=== PATIENT | male | born 1990 | race Caucasian/White ===

== ENCOUNTER 2018-01-04 19:51 | Emergency (ER) | payer MEDICARE, OTHER ==
[~2018-01-04] VITALS: Ht 177.8 cm; Wt 72.7 kg
[~2018-01-04 19:51] MED LIST: NO HOME MEDS
[2018-01-04 19:54] VITALS: BP 110/57
[2018-01-04] MEDS ORDERED: LIDOcaine 1.5% w/epinephrine 1:200,000 5ml ampul IJ ONE (20:10)
[2018-01-04] MEDS ORDERED: normal saline 1000ML IV soln IVB ONE (20:10)
[2018-01-04] MEDS ORDERED: bacitracin 15gm ointment TP ONE (20:10)
[2018-01-04] MEDS: TETanus/Pertussis (Acell)/Diphther VAC/PF (Tdap-Adult) 0.5ml syringe IM ONE ×2 (20:10→20:33)
== END 2018-01-04 21:35 | disposition home or self-care (01) ==
LOC: ER 19:51
DX: S01.01XA Laceration without foreign body of scalp, initial encounter (principal); F10.129 Alcohol abuse with intoxication, unspecified; F20.9 Schizophrenia, unspecified; F41.9 Anxiety disorder, unspecified; F12.10 Cannabis abuse, uncomplicated; F15.10 Other stimulant abuse, uncomplicated; F11.10 Opioid abuse, uncomplicated; Z88.1 Allergy status to other antibiotic agents; Z90.49 Acquired absence of other specified parts of digestive tract; W45.8XXA Other foreign body or object entering through skin, initial encounter; Y93.89 Activity, other specified; Y99.8 Other external cause status; Y92.89 Other specified places as the place of occurrence of the external cause
CPT/HCPCS: 12002; 70450; 99284; A6449; J3490; J7030; 90715; 96360

== ENCOUNTER 2018-01-08 05:25 | Emergency (ER) | payer MEDICARE, OTHER ==
[~2018-01-08] VITALS: Ht 172.7 cm; Wt 65.0 kg
[2018-01-08 05:29] VITALS: BP 117/74
[2018-01-08] MEDS ORDERED: predniSONE 20 mg tablet PO ONE (06:30)
[2018-01-08] MEDS ORDERED: PRED20TA PO (06:31)
== END 2018-01-08 06:44 | disposition home or self-care (01) ==
LOC: ER 05:25
DX: R21 Rash and other nonspecific skin eruption (principal); F12.90 Cannabis use, unspecified, uncomplicated; F15.90 Other stimulant use, unspecified, uncomplicated; F11.90 Opioid use, unspecified, uncomplicated; Z98.890 Other specified postprocedural states; Z79.899 Other long term (current) drug therapy; Z88.8 Allergy status to other drugs, medicaments and biological substances
CPT/HCPCS: 99283; J7512

== ENCOUNTER 2018-01-12 10:20 | Emergency (ER) | payer MEDICARE, OTHER ==
[~2018-01-12] VITALS: Ht 172.7 cm; Wt 63.8 kg
[~2018-01-12 10:20] MED LIST changes: +PRED20TA PO
[2018-01-12 10:22] VITALS: BP 139/74
== END 2018-01-12 11:48 | disposition home or self-care (01) ==
LOC: ER 10:20
DX: S01.01XD Laceration without foreign body of scalp, subsequent encounter (principal); F12.90 Cannabis use, unspecified, uncomplicated; F15.90 Other stimulant use, unspecified, uncomplicated; F11.90 Opioid use, unspecified, uncomplicated; Z88.8 Allergy status to other drugs, medicaments and biological substances; Z90.49 Acquired absence of other specified parts of digestive tract; Z79.899 Other long term (current) drug therapy; X58.XXXD Exposure to other specified factors, subsequent encounter
CPT/HCPCS: 99281

== ENCOUNTER 2018-04-14 17:11 | Emergency (ER) | payer MEDICARE, OTHER ==
[~2018-04-14] VITALS: Ht 172.7 cm; Wt 62.5 kg
[~2018-04-14 17:11] MED LIST changes: -PRED20TA PO
[2018-04-14 17:18] VITALS: BP 104/67
[2018-04-14] MEDS ORDERED: CLIN150C2 PO (18:15)
== END 2018-04-14 18:36 | disposition home or self-care (01) ==
LOC: ER 17:11
DX: L03.115 Cellulitis of right lower limb (principal); L02.415 Cutaneous abscess of right lower limb; F12.90 Cannabis use, unspecified, uncomplicated; F17.200 Nicotine dependence, unspecified, uncomplicated; Z90.49 Acquired absence of other specified parts of digestive tract; Z88.1 Allergy status to other antibiotic agents
CPT/HCPCS: 99283

== ENCOUNTER 2018-04-15 02:23 | Emergency (ER) | payer MEDICARE, OTHER ==
[~2018-04-15] VITALS: Ht 172.7 cm; Wt 62.4 kg
[~2018-04-15 02:23] MED LIST changes: +CLIN150C2 PO
[2018-04-15 02:31] VITALS: BP 104/70
[2018-04-15] MEDS ORDERED: clindamycin 150mg capsule PO ONE (02:45)
[2018-04-15] MEDS ORDERED: acetaminophen 325mg tablet PO ONE (02:55)
== END 2018-04-15 03:07 | disposition home or self-care (01) ==
LOC: ER 02:24
DX: L73.9 Follicular disorder, unspecified (principal); F12.90 Cannabis use, unspecified, uncomplicated; Z88.1 Allergy status to other antibiotic agents; Z90.49 Acquired absence of other specified parts of digestive tract
CPT/HCPCS: 10060; 99283

== ENCOUNTER 2018-04-15 05:54 | Emergency (ER) | payer MEDICARE, OTHER ==
[~2018-04-15] VITALS: Ht 172.7 cm; Wt 75.0 kg
[2018-04-15] MEDS ORDERED: ibuprofen 200mg tablet PO ONE (06:35)
[2018-04-15] MEDS ORDERED: HYDROcodone/acetaminophen 5mg/325mg tablet PO ONE (06:35)
[2018-04-15 07:04] VITALS: BP 92/53
== END 2018-04-15 07:05 | disposition home or self-care (01) ==
LOC: ER 05:55
DX: L03.115 Cellulitis of right lower limb (principal); F12.90 Cannabis use, unspecified, uncomplicated; Z88.1 Allergy status to other antibiotic agents; Z90.49 Acquired absence of other specified parts of digestive tract
CPT/HCPCS: 99283

== ENCOUNTER 2018-04-17 14:41 | Emergency (ER) | payer MEDICARE, OTHER ==
[2018-04-17] MEDS ORDERED: SULF1TAB49 PO (18:04)
== END 2018-04-17 18:02 | disposition left against medical advice (07) ==
LOC: ER 14:42
DX: L02.419 Cutaneous abscess of limb, unspecified (principal); Z53.21 Procedure and treatment not carried out due to patient leaving prior to being seen by health care provider

== ENCOUNTER 2018-04-17 17:33 | Emergency (ER) | payer MEDICARE, OTHER ==
[~2018-04-17] VITALS: Ht 172.7 cm; Wt 60.0 kg
[2018-04-17 17:55] VITALS: BP 100/60
[2018-04-17] MEDS ORDERED: SULF1TAB49 PO (18:04)
== END 2018-04-17 18:15 | disposition home or self-care (01) ==
LOC: ER 17:34
DX: L02.415 Cutaneous abscess of right lower limb (principal); F12.90 Cannabis use, unspecified, uncomplicated; Z86.14 Personal history of Methicillin resistant Staphylococcus aureus infection; Z90.49 Acquired absence of other specified parts of digestive tract; Z98.890 Other specified postprocedural states; Z88.1 Allergy status to other antibiotic agents; Z79.2 Long term (current) use of antibiotics
CPT/HCPCS: 99283

== ENCOUNTER 2022-12-26 00:19 | Emergency (ER) | payer MEDICARE, MEDICAID ==
[~2022-12-26] VITALS: Ht 172.7 cm; Wt 59.1 kg
[~2022-12-26 00:19] MED LIST changes: -CLIN150C2 PO
[2022-12-26 00:53] LABS: BASOPHILS # (AUTO) 0.1 X10'3 (0-0.2); BASOPHILS % (AUTO) 0.4 % (0-1); EOSINOPHILS % (AUTO) 0.1 % (0-6); HEMATOCRIT 43.9 % (42.0-52.0); HEMOGLOBIN 15.1 g/dl (14.0-17.9); LYMPHOCYTES # (AUTO) 2.3 X10'3 (1.1-4.8); MEAN CORPUSCULAR HEMOGLOBIN 32.3 PG (27.0-31.0); MEAN CORPUSCULAR HGB CONC 34.4 g/dL (33.0-36.5); MEAN CORPUSCULAR VOLUME 93.9 FL (78-98); MEAN PLATELET VOLUME 7.2 FL (7.4-10.4); MONOCYTES % (AUTO) 7.7 % (2-12); NEUTROPHILS # (AUTO) 9.2 X10'3 (1.8-7.7); NEUTROPHILS % (AUTO) 73.8 % (42-75); PLATELET COUNT 389 X10'3 (140-440); RED BLOOD COUNT 4.68 X10'6 (4.70-6.10); RED CELL DISTRIBUTION WIDTH 13.7 % (11.5-14.5); WHITE BLOOD COUNT 12.5 X10'3 (4.5-11.0)
[2022-12-26 01:06] LABS: ALANINE AMINOTRANSFERASE 35 U/L (12-78); ALBUMIN 4.2 G/DL (3.4-5.0); ALBUMIN/GLOBULIN RATIO 1.2 (1.1-1.5); ANION GAP 12 (8-16); ASPARTATE AMINO TRANSFERASE 18 U/L (10-37); BILIRUBIN,TOTAL 0.6 MG/DL (0.1-1.0); BLOOD UREA NITROGEN 20 MG/DL (7-18); BUN/CREATININE RATIO 16.1 (10.0-20.0); CALCIUM 9.4 MG/DL (8.5-10.1); CHLORIDE 96 MMOL/L (99-107); CREATININE 1.24 MG/DL (0.60-1.10); GLUCOSE 125 MG/DL (70-104); POTASSIUM 3.2 MMOL/L (3.5-5.1); SODIUM 131 MMOL/L (135-145); TOTAL CARBON DIOXIDE 22.7 MMOL/L (24-32); TOTAL PROTEIN 7.7 G/DL (6.4-8.2); eGFR 68 ML/MIN
[2022-12-26 01:07] LABS: ALKALINE PHOSPHATASE 127 IU/L (46-116)
[2022-12-26] MEDS ORDERED: ondansetron 4mg rapidly disintigrating tab PO ONE (06:10)
[2022-12-26] MEDS ORDERED: normal saline 1000ML IV soln IVB ONE (06:45)
[2022-12-26] MEDS ORDERED: potassium Cl 20 mEq SR tablet PO ONE (06:50)
[2022-12-26] MEDS ORDERED: mag hydrox/Alum hydrox/simeth 30ml oral suspension PO ONE (08:00)
[2022-12-26] MEDS ORDERED: metoclopramide 5 mg/ml inj IV ONE (08:00)
[2022-12-26 08:13] VITALS: BP 119/58
== END 2022-12-26 09:05 | disposition home or self-care (01) ==
LOC: ER 00:20
DX: R07.9 Chest pain, unspecified (principal); F41.9 Anxiety disorder, unspecified; F20.9 Schizophrenia, unspecified; F12.10 Cannabis abuse, uncomplicated; Z86.14 Personal history of Methicillin resistant Staphylococcus aureus infection
CPT/HCPCS: 36415; 71045; 80053; 83880; 84484; 85025; 93005; 96374; 99285; J2765; J7030

== ENCOUNTER 2023-01-17 09:03 | Emergency (ER) | payer MEDICAID ==
[~2023-01-17] VITALS: Ht 182.9 cm; Wt 65.0 kg
[2023-01-17 09:46] VITALS: BP 110/69
[2023-01-17 10:20] LABS: BASOPHILS % (AUTO) 0.7 % (0-1); EOSINOPHILS % (AUTO) 0.5 % (0-6); HEMATOCRIT 42.7 % (42.0-52.0); LYMPHOCYTES # (AUTO) 1.6 X10'3 (1.1-4.8); LYMPHOCYTES % (AUTO) 25.2 % (21-51); MEAN CORPUSCULAR HEMOGLOBIN 30.7 PG (27.0-31.0); MEAN CORPUSCULAR HGB CONC 32.7 g/dL (33.0-36.5); MEAN CORPUSCULAR VOLUME 93.9 FL (78-98); MONOCYTES # (AUTO) 0.3 X10'3 (0-0.9); MONOCYTES % (AUTO) 5.6 % (2-12); NEUTROPHILS # (AUTO) 4.2 X10'3 (1.8-7.7); PLATELET COUNT 453 X10'3 (140-440); RED BLOOD COUNT 4.54 X10'6 (4.70-6.10); RED CELL DISTRIBUTION WIDTH 13.7 % (11.5-14.5); WHITE BLOOD COUNT 6.2 X10'3 (4.5-11.0)
[2023-01-17 10:32] LABS: URINE AMPHETAMINE SCREEN NEGATIVE (Neg); URINE BARBITUATE SCREEN NEGATIVE (Neg); URINE BENZODIAZEPINES SCREEN NEGATIVE (Neg); URINE CANNABINOID SCREEN NEGATIVE (Neg); URINE COCAINE SCREEN NEGATIVE (Neg); URINE METHADONE SCREEN NEGATIVE (Neg); URINE OPIATE SCREEN NEGATIVE (Neg); URINE PHENCYCLIDINE SCREEN NEGATIVE (Neg)
[2023-01-17 10:37] LABS: ALANINE AMINOTRANSFERASE 28 U/L (12-78); ALBUMIN 3.6 G/DL (3.4-5.0); ALBUMIN/GLOBULIN RATIO 0.8 (1.1-1.5); ALKALINE PHOSPHATASE 168 IU/L (46-116); ANION GAP 12 (8-16); ASPARTATE AMINO TRANSFERASE 19 U/L (10-37); BILIRUBIN,TOTAL 0.2 MG/DL (0.1-1.0); BLOOD UREA NITROGEN 10 MG/DL (7-18); BUN/CREATININE RATIO 10.4 (10.0-20.0); CALCIUM 9.1 MG/DL (8.5-10.1); CHLORIDE 100 MMOL/L (99-107); CREATININE 0.96 MG/DL (0.60-1.10); GLUCOSE 83 MG/DL (70-104); SODIUM 138 MMOL/L (135-145); TOTAL CARBON DIOXIDE 25.9 MMOL/L (24-32); eGFR 90 ML/MIN
[2023-01-17 11:23] LABS: ETHANOL < 0.010 GM/DL (0.0-0.010)
== END 2023-01-17 10:39 | disposition left against medical advice (07) ==
LOC: ER 09:04
DX: F60.0 Paranoid personality disorder (principal); Z20.822 Contact with and (suspected) exposure to COVID-19; Z53.21 Procedure and treatment not carried out due to patient leaving prior to being seen by health care provider
CPT/HCPCS: 36415; 80053; 80305; 80320; 85025; 87811; 99281

== ENCOUNTER 2023-02-21 19:05 | Inpatient (IN) | payer MEDICARE, MEDICAID ==
[~2023-02-21] VITALS: Ht 182.9 cm; Wt 68.2 kg
[2023-02-21 19:38] LABS: BASOPHILS # (AUTO) 0.1 X10'3 (0-0.2); EOSINOPHILS # (AUTO) 0.1 X10'3 (0-0.9); EOSINOPHILS % (AUTO) 1.6 % (0-6); HEMATOCRIT 40.8 % (42.0-52.0); HEMOGLOBIN 13.9 g/dl (14.0-17.9); LYMPHOCYTES # (AUTO) 2.7 X10'3 (1.1-4.8); MEAN CORPUSCULAR VOLUME 88.3 FL (78-98); MEAN PLATELET VOLUME 7.6 FL (7.4-10.4); MONOCYTES # (AUTO) 0.5 X10'3 (0-0.9); NEUTROPHILS # (AUTO) 2.5 X10'3 (1.8-7.7); NEUTROPHILS % (AUTO) 42.4 % (42-75); PLATELET COUNT 295 X10'3 (140-440); RED BLOOD COUNT 4.62 X10'6 (4.70-6.10); RED CELL DISTRIBUTION WIDTH 14.2 % (11.5-14.5); WHITE BLOOD COUNT 5.9 X10'3 (4.5-11.0)
[2023-02-21 19:52] LABS: ALANINE AMINOTRANSFERASE 27 U/L (12-78); ALBUMIN 3.8 G/DL (3.4-5.0); ALBUMIN/GLOBULIN RATIO 1.1 (1.1-1.5); ALKALINE PHOSPHATASE 124 IU/L (46-116); ANION GAP 14 (8-16); ASPARTATE AMINO TRANSFERASE 17 U/L (10-37); BILIRUBIN,TOTAL 0.2 MG/DL (0.1-1.0); BLOOD UREA NITROGEN 15 MG/DL (7-18); BUN/CREATININE RATIO 14.3 (10.0-20.0); CALCIUM 9.1 MG/DL (8.5-10.1); CHLORIDE 101 MMOL/L (99-107); CREATININE 1.05 MG/DL (0.60-1.10); GLUCOSE 112 MG/DL (70-104); LIPASE 78 U/L (73-393); POTASSIUM 3.7 MMOL/L (3.5-5.1); SODIUM 142 MMOL/L (135-145); TOTAL CARBON DIOXIDE 27.2 MMOL/L (24-32); TOTAL PROTEIN 7.3 G/DL (6.4-8.2); eGFR 81 ML/MIN
[2023-02-21] MEDS ORDERED: ondansetron/PF 4mg/2ml inj IV ONE (19:55)
[2023-02-21] MEDS ORDERED: morphine 4 MG/ML inj SYRINge IV ONE (19:55)
[2023-02-21] MEDS ORDERED: normal saline 1000ml 1,000 ML IV ONE (19:55)
[2023-02-21] MEDS ORDERED: ondansetron 4mg rapidly disintigrating tab PO STA (20:59)
--- NOTE | 2023-02-21 21:08 | NUR ---
[facility] transport # [id number]
[2023-02-21] MEDS ORDERED: ketorolac tromethamine 15mg/ml inj. IV STA (21:55)
[2023-02-21] MEDS ORDERED: iohexol 300mg/ml 100ml inj. ONE (22:41)
[2023-02-22] MEDS ORDERED: magnesium hydroxide 30ml (MOM) UD suspension PO PRN (00:20)
[2023-02-22] MEDS ORDERED: mag hydrox/Alum hydrox/simeth 30ml oral suspension PO PRN (00:20)
[2023-02-22] MEDS ORDERED: ondansetron/PF 4mg/2ml inj IV PRN (00:20)
[2023-02-22] MEDS ORDERED: HYDROcodone/acetaminophen 10/325mg tab PO PRN (00:20)
[2023-02-22] MEDS ORDERED: HYDROcodone/acetaminophen 5mg/325mg tablet PO PRN (00:20)
[2023-02-22] MEDS: normal saline 1000ml 1,000 ML IV SCH ×3 (00:20→21:23)
[2023-02-22] MEDS ORDERED: potassium Cl 20 mEq SR tablet PO PRN ×2 (00:20)
[2023-02-22] MEDS ORDERED: magnesium 4gm in 100ml NS 100 ML IV PRN (00:20)
[2023-02-22] MEDS ORDERED: potassium Cl 40MEQ/1/2NS 520ml 520 ML IV PRN (00:20)
[2023-02-22] MEDS ORDERED: acetaminophen 325mg tablet PO PRN (00:20)
[2023-02-22 00:52] LABS: CLARITY,URINE CLEAR (Clear); COLOR,URINE STRAW (Yellow); GLUCOSE, URINE NEGATIVE (Neg); KETONES,URINE NEGATIVE (Neg); LEUKOCYTE ESTERASE ,URINE NEGATIVE (Neg); NITRITES, URINE NEGATIVE (Neg); OCCULT BLOOD,URINE NEGATIVE (Neg); PH,URINE 7.5 (4.8-8.0); PROTEIN,URINE NEGATIVE (Neg); UROBILINOGEN,URINE 0.2 E.U/dL (0.2-1.0)
[2023-02-22 00:56] LABS: UA COLLECTION TYPE CLN CATCH MIDSTREAM
[2023-02-22] MEDS ORDERED: HYDR-3686 PO (03:10)
[2023-02-22] MEDS ORDERED: MIRT-67 PO (03:10)
[2023-02-22] MEDS ORDERED: PALI6TAB PO (03:10)
--- NOTE | 2023-02-22 03:59 | NUR ---
CALL TO [facility] PER PT REQUEST TO NOTIFIY THAT PT HAS BEEN ADMITTED. SPOKE W/ EMPIRE EMPLOYEE WHO VERBALIZED UNDERSTANDING AND REQUESTS THAT [facility] KEEP THEM UPDATED RE STATUS AND IMPENDING DC.
--- NOTE | 2023-02-22 04:01 | NUR ---
RECEIVED CALL FROM [facility] ABD XRAY RESULTS FOR NG TUBE PLACEMENT RECCOMENDS 10CM ADVANCEMENT FOR OPTIMAL PLACEMENT. CRN/ PROVIDER NOTIFIED. NG TUBE ADVANCED 10 CM W/O COMPLICATION. PT TOLERATED WELL. WILL CONT TO MONITOR.
[2023-02-22] MEDS: morphine 4 MG/ML inj SYRINge IV PRN ×4 (04:27→19:07)
[2023-02-22 07:37] LABS: ALANINE AMINOTRANSFERASE 23 U/L (12-78); ALBUMIN 3.5 G/DL (3.4-5.0); ALKALINE PHOSPHATASE 117 IU/L (46-116); ANION GAP 12 (8-16); ASPARTATE AMINO TRANSFERASE 21 U/L (10-37); BASOPHILS % (AUTO) 0.1 % (0-1); BILIRUBIN,TOTAL 0.3 MG/DL (0.1-1.0); BLOOD UREA NITROGEN 11 MG/DL (7-18); BUN/CREATININE RATIO 10.5 (10.0-20.0); CALCIUM 8.6 MG/DL (8.5-10.1); CHLORIDE 102 MMOL/L (99-107); CREATININE 1.05 MG/DL (0.60-1.10); EOSINOPHILS % (AUTO) 0 % (0-6); GLUCOSE 132 MG/DL (70-104); HEMATOCRIT 40.6 % (42.0-52.0); HEMOGLOBIN 13.7 g/dl (14.0-17.9); LYMPHOCYTES # (AUTO) 0.8 X10'3 (1.1-4.8); LYMPHOCYTES % (AUTO) 7.8 % (21-51); MAGNESIUM 1.7 MG/DL (1.5-2.4); MEAN CORPUSCULAR HEMOGLOBIN 29.7 PG (27.0-31.0); MEAN CORPUSCULAR HGB CONC 33.9 g/dL (33.0-36.5); MEAN CORPUSCULAR VOLUME 87.6 FL (78-98); MEAN PLATELET VOLUME 7.6 FL (7.4-10.4); MONOCYTES # (AUTO) 0.8 X10'3 (0-0.9); MONOCYTES % (AUTO) 7.7 % (2-12); NEUTROPHILS # (AUTO) 8.4 X10'3 (1.8-7.7); NEUTROPHILS % (AUTO) 84.4 % (42-75); PLATELET COUNT 279 X10'3 (140-440); POTASSIUM 3.9 MMOL/L (3.5-5.1); RED BLOOD COUNT 4.63 X10'6 (4.70-6.10); RED CELL DISTRIBUTION WIDTH 14.4 % (11.5-14.5); SODIUM 139 MMOL/L (135-145); TOTAL CARBON DIOXIDE 25.1 MMOL/L (24-32); TOTAL PROTEIN 6.9 G/DL (6.4-8.2); eGFR 81 ML/MIN
[2023-02-22] MEDS: hydrOXYzine 25 MG tablet PO SCH ×2 (08:00→20:00)
[2023-02-22] MEDS: K and/or MAG REPLACEMENT MC SCH ×2 (08:00→20:00)
[2023-02-22] MEDS: docusate sod 100mg capsule PO SCH ×2 (08:00→20:00)
[2023-02-22] MEDS: nicotine 14mg patch - 24hr TD SCH (08:28)
--- NOTE | 2023-02-22 12:38 | NUR ---
pt yelling out for RN, asked pt what I could help with. Pt telling this documentation writer the NG tube isnt working. I then showed pt the contents in the NG tube to show pt that it is still working. Asking for pain meds, informed RN.
[2023-02-22] MEDS: ketorolac tromethamine 15mg/ml inj. IV PRN ×2 (13:17→21:19)
--- NOTE | 2023-02-22 14:37 | NUR ---
Patient in room ED 9. I have received report from Marii FARIAS in the ED and had the opportunity to ask questions and assume patient care.
[2023-02-22 15:19] VITALS: RESP 16; O2SAT 95
[2023-02-22 15:32] VITALS: BP 120/63; PULSE 73; RESP 16; TEMP 97.8; O2SAT 95
--- NOTE | 2023-02-22 17:26 | NUR ---
Eli from [facility] called to inquire about patient's status. Unable to accept the phone call at the time. Confirmed with patient, okay to update Eli. Attempted to call back at 17:20. No answer, unable to leave message with Eli. Eli ext [phone]
--- NOTE | 2023-02-22 18:35 | NUR ---
Problems reprioritized. Patient report given, questions answered & plan of care reviewed with Tammy.
[2023-02-22 19:00] VITALS: RESP 16; O2SAT 96
[2023-02-22] MEDS ORDERED: diatrozoate meglu/diatrozoate sod (37% iodine) 120ML oral solution PO ONE (21:00)
[2023-02-22] MEDS: enoxaparin 40mg/0.4ml syringe SQ SCH (21:19)
[2023-02-22] MEDS: mirtazapine 15mg tablet PO SCH (21:20)
[2023-02-22] MEDS: PALIPERIDONE 3 MG TAB.ER.24 PO SCH (21:32)
[2023-02-23] VITALS (16 sets, daily range): BP systolic 102–145; BP diastolic 60–99; PULSE 65–111; RESP 14–21; TEMP 97.3–99.9; O2SAT 94–99
[2023-02-23] MEDS: morphine 4 MG/ML inj SYRINge IV PRN ×2 (00:19→07:57)
[2023-02-23] MEDS: ketorolac tromethamine 15mg/ml inj. IV PRN ×2 (03:43→22:15)
[2023-02-23 06:01] LABS: BASOPHILS % (AUTO) 0.2 % (0-1); EOSINOPHILS % (AUTO) 0.1 % (0-6); HEMATOCRIT 40.7 % (42.0-52.0); HEMOGLOBIN 13.8 g/dl (14.0-17.9); LYMPHOCYTES # (AUTO) 0.8 X10'3 (1.1-4.8); LYMPHOCYTES % (AUTO) 11.3 % (21-51); MEAN CORPUSCULAR HEMOGLOBIN 29.8 PG (27.0-31.0); MEAN CORPUSCULAR HGB CONC 33.9 g/dL (33.0-36.5); MEAN PLATELET VOLUME 7.9 FL (7.4-10.4); MONOCYTES # (AUTO) 0.9 X10'3 (0-0.9); MONOCYTES % (AUTO) 12.6 % (2-12); NEUTROPHILS # (AUTO) 5.3 X10'3 (1.8-7.7); NEUTROPHILS % (AUTO) 75.8 % (42-75); PLATELET COUNT 249 X10'3 (140-440); RED BLOOD COUNT 4.63 X10'6 (4.70-6.10); RED CELL DISTRIBUTION WIDTH 14.8 % (11.5-14.5); WHITE BLOOD COUNT 6.9 X10'3 (4.5-11.0)
--- NOTE | 2023-02-23 06:25 | NUR ---
I have received report from BETITO Munoz; and had the opportunity to ask questions and assume patient care. Patient has no acute distress at this time.
[2023-02-23 06:53] LABS: ALANINE AMINOTRANSFERASE 19 U/L (12-78); ALBUMIN 3.2 G/DL (3.4-5.0); ALKALINE PHOSPHATASE 93 IU/L (46-116); ANION GAP 7 (8-16); ASPARTATE AMINO TRANSFERASE 17 U/L (10-37); BILIRUBIN,TOTAL 0.5 MG/DL (0.1-1.0); BLOOD UREA NITROGEN 14 MG/DL (7-18); BUN/CREATININE RATIO 15.6 (10.0-20.0); CALCIUM 8.2 MG/DL (8.5-10.1); CHLORIDE 106 MMOL/L (99-107); GLUCOSE 110 MG/DL (70-104); MAGNESIUM 1.9 MG/DL (1.5-2.4); POTASSIUM 3.4 MMOL/L (3.5-5.1); SODIUM 142 MMOL/L (135-145); TOTAL CARBON DIOXIDE 28.7 MMOL/L (24-32); TOTAL PROTEIN 6.5 G/DL (6.4-8.2); eGFR > 90 ML/MIN
[2023-02-23] MEDS: normal saline 1000ml 1,000 ML IV SCH ×3 (06:53→20:40)
[2023-02-23] MEDS ORDERED: potassium Cl 40MEQ/1/2NS 520ml 520 ML IV ONE (07:45)
[2023-02-23] MEDS: hydrOXYzine 25 MG tablet PO SCH ×2 (08:00→20:00)
[2023-02-23] MEDS: docusate sod 100mg capsule PO SCH ×2 (08:00→20:00)
[2023-02-23] MEDS: nicotine 14mg patch - 24hr TD SCH (08:14)
[2023-02-23] MEDS: K and/or MAG REPLACEMENT MC SCH ×2 (08:14→20:00)
[2023-02-23] MEDS: ondansetron/PF 4mg/2ml inj IV PRN ×2 (10:39→17:56)
--- NOTE | 2023-02-23 13:10 | NUR ---
Paged the doctor in re: to pt vomiting after trying C.L diet. Not due for Zofran yet. PAGER ID: [phone] MESSAGE: [id number] Pt in RM: [address] [place]. Had 500 mL of emesis after trying clear liquids. FYI (96 character message out of a maximum of 240)
--- NOTE | 2023-02-23 13:13 | NUR ---
Dr. Aldrich notes to start the NG tube suctioning back up and we will continue to have a C.L diet for the pt and CTM.
--- NOTE | 2023-02-23 15:13 | NUR ---
POLICE JUDGE documentation: I have reviewed and agree with all interventions, assessments performed and documented by Van Terry LVN.
[2023-02-23] MEDS ORDERED: proCHLORperazine 10 MG/2 ml inj IV PRN (18:30)
[2023-02-23] MEDS ORDERED: ondansetron/PF 4mg/2ml inj IV PRN (18:30)
[2023-02-23] MEDS ORDERED: meperidine/PF 25mg/ml syringe IV PRN ×3 (18:30)
[2023-02-23] MEDS ORDERED: morphine 4 MG/ML inj SYRINge IV PRN (18:30)
[2023-02-23] MEDS ORDERED: ringers solution, lacted 1,000 ML IV SCH (18:30)
[2023-02-23] MEDS ORDERED: morphine 2 MG/ML inj. syringe IV PRN (18:30)
--- NOTE | 2023-02-23 18:40 | NUR ---
Relayed report to Tammy CISSE of patients current needs of care. OR has called and states they are coming to get the pt to get operated on by Dr. Kilgore. NAD
--- NOTE | 2023-02-23 18:40 | NUR ---
During shift change, Am nurse received phone call that pt was going to surgery. Assumed pt care. Pt has NGT to LIS, bed changed, Pt wiped down d/t gastric contents on pt and bed, pt placed in gown, IV running. Pt is aware he is now going to surgery. 1899 Surgical team here to get pt. BS 100. Addendum: 02/23/23 at 1907 by Tammy Flaherty RN Amended: Links added.
[2023-02-23] MEDS ORDERED: BUPIVAcaine/PF 2.5 mg/ml (0.25%) 30ml vial ONE ×2 (18:45→19:28)
[2023-02-23] MEDS ORDERED: LIDOcaine 1% 30ml preserv. free vial ONE (18:45)
[2023-02-23] MEDS ORDERED: dexamethasone sod phosphate 10mg/ml inj ONE (18:55)
[2023-02-23] MEDS ORDERED: sevoflurane 250ml liquid IH ONE (18:55)
[2023-02-23] MEDS ORDERED: neostigmine methylsulfate 1 MG/ML 10ml vial ONE (18:55)
[2023-02-23] MEDS ORDERED: glycopyrrolate 0.2mg/ml inj ONE (18:55)
[2023-02-23] MEDS ORDERED: midazolam 1 mg/ML 2ml injection ONE (19:11)
[2023-02-23] MEDS ORDERED: fentaNYL /PF 50mcg/ml 5ml ampule ONE (19:11)
[2023-02-23] MEDS ORDERED: propofol inj 20 ML IV ONE (19:14)
[2023-02-23] MEDS ORDERED: LIDOcaine 2% (20mg/ml) 5ml vial ONE (19:14)
[2023-02-23] MEDS ORDERED: rocuronium 10mg/ml inj IV ONE (19:25)
[2023-02-23] MEDS ORDERED: BUPIVACAINE liposomal/PF 13.3 MG/ML vial IM ONE (19:28)
[2023-02-23] MEDS ORDERED: ceFAZolin 1000mg inj ONE ×2 (19:45)
[2023-02-23] MEDS: enoxaparin 40mg/0.4ml syringe SQ SCH (20:00)
[2023-02-23] MEDS ORDERED: acetaminophen 1,000mg/100ml IV 100 ML IV ONE (20:15)
[2023-02-23] MEDS ORDERED: ondansetron/PF 4mg/2ml inj ONE (20:18)
--- NOTE | 2023-02-23 20:35 | NUR ---
Received from OR via , accompanied by Anesthesiologist DR TOWNSEND and report given by Anesthesiolgist. PT WAKES TO VOICE, SKIN WARM AND PINK, PIV LEFT HAND, JUÁREZ TO GRAVITY, TEA COLORED, ISLAND DRESSING WITH SHADOW, NG TO LOW CONT, SCD'S, POST OP SHIVERS TREATED WITH DEMEROL. VSS.
[2023-02-23] MEDS ORDERED: naloxone 0.4 mg/ml inj IV PRN (20:40)
--- NOTE | 2023-02-23 20:50 | NUR ---
around this time I received phone report from RR nurse, Shobha.
[2023-02-23] MEDS: HYDROmorph/NS 0.2 mg/ml PCA 100 ML IV SCH ×2 (21:00→23:00)
--- NOTE | 2023-02-23 21:08 | NUR ---
Report called to receiving nurse. Transferred via BED Belongings . Special Issues communicated to receiving nurse MAICOL CISSE. PT IS AWAKE, ALERT, MOVING EXT X 4, NO C/O PAIN, JUÁREZ TO GRAVITY, PIV PATENT, ABD DRESSING WITH SHADOW OF DRAINAGE, NG TO LIS WITH NO DRAINAGE, SCDS, PT MEETS DISCHARGE CRITERIA. Addendum: 02/23/23 at 2121 by Shobha Davila RN DISCHARGE TO ROOM AT 2112
--- NOTE | 2023-02-23 21:10 | NUR ---
Pt arrived back to his room from surgery, NG in place and iv in place and f/c in place.
[2023-02-23] MEDS: PALIPERIDONE 3 MG TAB.ER.24 PO SCH (22:20)
[2023-02-23] MEDS: mirtazapine 15mg tablet PO SCH (22:27)
[2023-02-24] VITALS (9 sets, daily range): BP systolic 100–120; BP diastolic 51–77; PULSE 65–91; RESP 16–18; TEMP 97.8–98.5; O2SAT 92–99
[2023-02-24] MEDS: HYDROmorph/NS 0.2 mg/ml PCA 100 ML IV SCH ×12 (01:00→23:00)
[2023-02-24] MEDS: normal saline 1000ml 1,000 ML IV SCH ×4 (02:24→23:51)
[2023-02-24 06:21] LABS: BASOPHILS % (AUTO) 0.1 % (0-1); EOSINOPHILS % (AUTO) 0 % (0-6); HEMATOCRIT 39.3 % (42.0-52.0); HEMOGLOBIN 13.1 g/dl (14.0-17.9); LYMPHOCYTES # (AUTO) 0.5 X10'3 (1.1-4.8); LYMPHOCYTES % (AUTO) 8.6 % (21-51); MEAN CORPUSCULAR HEMOGLOBIN 29.6 PG (27.0-31.0); MEAN CORPUSCULAR HGB CONC 33.3 g/dL (33.0-36.5); MEAN PLATELET VOLUME 7.9 FL (7.4-10.4); MONOCYTES # (AUTO) 0.7 X10'3 (0-0.9); MONOCYTES % (AUTO) 11.6 % (2-12); NEUTROPHILS # (AUTO) 4.7 X10'3 (1.8-7.7); NEUTROPHILS % (AUTO) 79.7 % (42-75); PLATELET COUNT 224 X10'3 (140-440); RED BLOOD COUNT 4.42 X10'6 (4.70-6.10); RED CELL DISTRIBUTION WIDTH 14.3 % (11.5-14.5); WHITE BLOOD COUNT 5.9 X10'3 (4.5-11.0)
[2023-02-24 06:24] LABS: ALANINE AMINOTRANSFERASE 15 U/L (12-78); ALBUMIN 2.7 G/DL (3.4-5.0); ALBUMIN/GLOBULIN RATIO 0.8 (1.1-1.5); ALKALINE PHOSPHATASE 67 IU/L (46-116); ANION GAP 10 (8-16); ASPARTATE AMINO TRANSFERASE 11 U/L (10-37); BILIRUBIN,TOTAL 0.5 MG/DL (0.1-1.0); BLOOD UREA NITROGEN 12 MG/DL (7-18); BUN/CREATININE RATIO 14.6 (10.0-20.0); CALCIUM 8.4 MG/DL (8.5-10.1); CHLORIDE 103 MMOL/L (99-107); CREATININE 0.82 MG/DL (0.60-1.10); GLUCOSE 148 MG/DL (70-104); MAGNESIUM 1.7 MG/DL (1.5-2.4); POTASSIUM 3.9 MMOL/L (3.5-5.1); SODIUM 139 MMOL/L (135-145); TOTAL CARBON DIOXIDE 26.3 MMOL/L (24-32); eGFR > 90 ML/MIN
--- NOTE | 2023-02-24 06:40 | NUR ---
Patient in room ORTHO 4024. I have received report from BETITO Munoz and had the opportunity to ask questions and assume patient care.
--- NOTE | 2023-02-24 06:42 | NUR ---
Problems reprioritized. Patient report given, questions answered & plan of care reviewed with Shagufta CISSE. Addendum: 02/24/23 at 0642 by Tammy Flaherty RN Amended: Links added.
[2023-02-24] MEDS: K and/or MAG REPLACEMENT MC SCH ×2 (08:00→19:57)
[2023-02-24] MEDS: docusate sod 100mg capsule PO SCH ×2 (08:48→19:56)
[2023-02-24] MEDS: hydrOXYzine 25 MG tablet PO SCH ×2 (08:48→21:07)
--- NOTE | 2023-02-24 14:33 | NUR ---
Eli, advocate/piano case maker for pt at [facility],
--- NOTE | 2023-02-24 18:50 | NUR ---
Problems reprioritized. Patient report given, questions answered & plan of care reviewed with BETITO Munoz.
[2023-02-24] MEDS: enoxaparin 40mg/0.4ml syringe SQ SCH (19:56)
[2023-02-24] MEDS: mirtazapine 15mg tablet PO SCH (21:07)
[2023-02-24] MEDS: PALIPERIDONE 3 MG TAB.ER.24 PO SCH (21:07)
--- NOTE | 2023-02-24 22:37 | NUR ---
Order received, straight cath for 550ml out, some resistance during insertion. pt handled well. Addendum: 02/24/23 at 2238 by Tammy Flaherty RN Amended: Links added.
[2023-02-25] MEDS: HYDROmorph/NS 0.2 mg/ml PCA 100 ML IV SCH ×4 (01:00→07:00)
--- NOTE | 2023-02-25 02:39 | NUR ---
Pt woke up in pain, doubled over crying. Encouraged to walk and press pain button after he has been asleep for a few hrs. Pt is still crying out loud and carrying on. Asked pt if he told Dr. Kilgore he passed gas? pt stated "I told him I passed gas so I could get the tube out". Pt was informed and educated on now the risks of lying to surgeon about passing gas, and that is why he is in so much pain. Pt encouraged to walk more and to stop drinking at this time. Pt does have bowel sounds, they have been tympanic sounding this shift. Pt has now been able to void on his own. Addendum: 02/25/23 at 0247 by Tammy Flaherty RN Amended: Links added.
--- NOTE | 2023-02-25 03:30 | NUR ---
Pt walking several laps around [facility]. Denies gas.
[2023-02-25 04:38] LABS: ALANINE AMINOTRANSFERASE 19 U/L (12-78); ALBUMIN 3.1 G/DL (3.4-5.0); ALBUMIN/GLOBULIN RATIO 0.8 (1.1-1.5); ALKALINE PHOSPHATASE 72 IU/L (46-116); ANION GAP 10 (8-16); ASPARTATE AMINO TRANSFERASE 17 U/L (10-37); BILIRUBIN,TOTAL 0.5 MG/DL (0.1-1.0); BLOOD UREA NITROGEN 11 MG/DL (7-18); BUN/CREATININE RATIO 11.8 (10.0-20.0); CALCIUM 8.5 MG/DL (8.5-10.1); CHLORIDE 103 MMOL/L (99-107); CREATININE 0.93 MG/DL (0.60-1.10); GLUCOSE 103 MG/DL (70-104); MAGNESIUM 1.9 MG/DL (1.5-2.4); POTASSIUM 3.4 MMOL/L (3.5-5.1); SODIUM 139 MMOL/L (135-145); TOTAL CARBON DIOXIDE 25.9 MMOL/L (24-32); TOTAL PROTEIN 6.8 G/DL (6.4-8.2); eGFR > 90 ML/MIN
[2023-02-25 04:46] LABS: BASOPHILS % (AUTO) 0.2 % (0-1); EOSINOPHILS % (AUTO) 0.7 % (0-6); HEMATOCRIT 36.5 % (42.0-52.0); HEMOGLOBIN 12.2 g/dl (14.0-17.9); LYMPHOCYTES # (AUTO) 1.6 X10'3 (1.1-4.8); LYMPHOCYTES % (AUTO) 33.4 % (21-51); MEAN CORPUSCULAR HEMOGLOBIN 29.7 PG (27.0-31.0); MEAN CORPUSCULAR HGB CONC 33.5 g/dL (33.0-36.5); MEAN CORPUSCULAR VOLUME 88.5 FL (78-98); MEAN PLATELET VOLUME 8.1 FL (7.4-10.4); MONOCYTES # (AUTO) 0.8 X10'3 (0-0.9); MONOCYTES % (AUTO) 15.3 % (2-12); NEUTROPHILS # (AUTO) 2.5 X10'3 (1.8-7.7); NEUTROPHILS % (AUTO) 50.4 % (42-75); PLATELET COUNT 254 X10'3 (140-440); RED BLOOD COUNT 4.12 X10'6 (4.70-6.10); RED CELL DISTRIBUTION WIDTH 14.5 % (11.5-14.5); WHITE BLOOD COUNT 4.9 X10'3 (4.5-11.0)
--- NOTE | 2023-02-25 06:30 | NUR ---
Patient in room ORTHO 4024. I have received report from Tammy CISSE and had the opportunity to ask questions and assume patient care.
--- NOTE | 2023-02-25 06:36 | NUR ---
Problems reprioritized. Patient report given, questions answered & plan of care reviewed with Tisha . Addendum: 02/25/23 at 0637 by Tammy Flaherty RN Amended: Links added.
[2023-02-25 08:00] VITALS: RESP 17; O2SAT 97
[2023-02-25] MEDS: K and/or MAG REPLACEMENT MC SCH ×2 (08:00→19:14)
[2023-02-25] MEDS: hydrOXYzine 25 MG tablet PO SCH ×3 (08:00→22:12)
[2023-02-25] MEDS: docusate sod 100mg capsule PO SCH ×3 (08:00→22:12)
[2023-02-25] MEDS ORDERED: PCA WASTE DOCUMENTATION 1 MG ML MC ONE (08:50)
[2023-02-25 10:00] VITALS: BP 123/76; PULSE 85; RESP 17; TEMP 98.4; O2SAT 97
--- NOTE | 2023-02-25 13:00 | NUR ---
Dr. Oliva said to place NG tube for patient. Then Dr. Jones said to hold off on placing an NG tube. Patient is to be NPO until passing flatus and continue to walk.
[2023-02-25] MEDS: normal saline 1000ml 1,000 ML IV SCH ×2 (14:20→20:40)
[2023-02-25] MEDS: metoclopramide 5 mg/ml inj IV SCH ×2 (14:24→22:04)
--- NOTE | 2023-02-25 16:04 | NUR ---
HAND COKE DRAWER documentation: I have reviewed and agree with all interventions, assessments performed and documented by Tisha Garcia LVN.
[2023-02-25] MEDS: HYDROmorphone inj. 0.5 MG/0.5 ML DISP.SYRIN IV PRN ×2 (17:13→22:11)
[2023-02-25 18:00] VITALS: BP 135/89; PULSE 81; RESP 16; TEMP 98.8; O2SAT 97
--- NOTE | 2023-02-25 18:24 | NUR ---
Problems reprioritized. Patient report given, questions answered & plan of care reviewed with Sandy FARIAS.
[2023-02-25] MEDS: enoxaparin 40mg/0.4ml syringe SQ SCH (20:11)
[2023-02-25] MEDS: PALIPERIDONE 3 MG TAB.ER.24 PO SCH ×2 (21:00→22:12)
[2023-02-25] MEDS: mirtazapine 15mg tablet PO SCH ×2 (21:00→22:12)
[2023-02-25 22:00] VITALS: BP 125/99; PULSE 90; RESP 18; TEMP 99; O2SAT 95
--- NOTE | 2023-02-25 23:17 | NUR ---
Agree with Sandy FARIAS physical assessment except where I documented my findings.
[2023-02-26] MEDS: normal saline 1000ml 1,000 ML IV SCH ×2 (01:50→12:45)
[2023-02-26] MEDS: metoclopramide 5 mg/ml inj IV SCH ×4 (01:50→21:48)
[2023-02-26] MEDS: HYDROmorphone inj. 0.5 MG/0.5 ML DISP.SYRIN IV PRN (02:47)
--- NOTE | 2023-02-26 05:08 | NUR ---
I went into pts room to bladder scan pt. I then explained to pt that i need him to urinate or i have an order to straight cath him. pt was very upset that he is being bothered about urinating. pt raised his voice and stated "how do i have so much pee when im not drinking anything!" I explained to the pt he has IV fluids to keep him hydrated. the pt then stated "take this IV out now or i am going to rip it out!" I disconnected the IV. the pt again raised his voice and stated "Get me some water now! I am not a prisoner" i explained the doctor has written an NPO order which means no food or drinks by mouth because it will make his condition worse. pt stated " hes just a dumb F-ing doctor, get me water now!"
[2023-02-26 06:00] VITALS: BP 117/82; PULSE 81; RESP 19; TEMP 98.7; O2SAT 96
--- NOTE | 2023-02-26 06:35 | NUR ---
Problems reprioritized. Patient report given, questions answered & plan of care reviewed with Jahaira CISSE.
[2023-02-26 06:42] LABS: BASOPHILS % (AUTO) 0.7 % (0-1); EOSINOPHILS # (AUTO) 0.2 X10'3 (0-0.9); EOSINOPHILS % (AUTO) 3.6 % (0-6); HEMATOCRIT 35.5 % (42.0-52.0); HEMOGLOBIN 11.9 g/dl (14.0-17.9); LYMPHOCYTES # (AUTO) 1.7 X10'3 (1.1-4.8); LYMPHOCYTES % (AUTO) 36.8 % (21-51); MEAN CORPUSCULAR HEMOGLOBIN 29.5 PG (27.0-31.0); MEAN CORPUSCULAR HGB CONC 33.4 g/dL (33.0-36.5); MEAN CORPUSCULAR VOLUME 88.2 FL (78-98); MEAN PLATELET VOLUME 7.8 FL (7.4-10.4); MONOCYTES # (AUTO) 0.6 X10'3 (0-0.9); MONOCYTES % (AUTO) 12.5 % (2-12); NEUTROPHILS # (AUTO) 2.2 X10'3 (1.8-7.7); NEUTROPHILS % (AUTO) 46.4 % (42-75); PLATELET COUNT 257 X10'3 (140-440); RED BLOOD COUNT 4.03 X10'6 (4.70-6.10); RED CELL DISTRIBUTION WIDTH 14.2 % (11.5-14.5); WHITE BLOOD COUNT 4.6 X10'3 (4.5-11.0)
[2023-02-26 06:52] LABS: ALANINE AMINOTRANSFERASE 14 U/L (12-78); ALBUMIN 2.7 G/DL (3.4-5.0); ALBUMIN/GLOBULIN RATIO 0.8 (1.1-1.5); ALKALINE PHOSPHATASE 66 IU/L (46-116); ANION GAP 12 (8-16); ASPARTATE AMINO TRANSFERASE 15 U/L (10-37); BILIRUBIN,TOTAL 0.6 MG/DL (0.1-1.0); BLOOD UREA NITROGEN 11 MG/DL (7-18); BUN/CREATININE RATIO 15.3 (10.0-20.0); CALCIUM 8.5 MG/DL (8.5-10.1); CHLORIDE 104 MMOL/L (99-107); CREATININE 0.72 MG/DL (0.60-1.10); GLUCOSE 78 MG/DL (70-104); POTASSIUM 3.3 MMOL/L (3.5-5.1); SODIUM 141 MMOL/L (135-145); TOTAL CARBON DIOXIDE 25.5 MMOL/L (24-32); eGFR > 90 ML/MIN
[2023-02-26] MEDS: K and/or MAG REPLACEMENT MC SCH ×2 (08:00→20:00)
[2023-02-26] MEDS: docusate sod 100mg capsule PO SCH ×2 (08:07→21:46)
[2023-02-26] MEDS: hydrOXYzine 25 MG tablet PO SCH ×2 (08:07→21:46)
[2023-02-26 08:10] VITALS: RESP 18
[2023-02-26 10:00] VITALS: BP 117/80; PULSE 85; RESP 16; TEMP 98.7; O2SAT 96
[2023-02-26] MEDS: magnesium hydroxide 30ml (MOM) UD suspension PO SCH ×2 (14:40→20:00)
[2023-02-26 18:00] VITALS: BP 124/71; PULSE 74; RESP 18; TEMP 98.3; O2SAT 96
--- NOTE | 2023-02-26 18:49 | NUR ---
Patient in room ORTHO 4024. I have received report from JONNATHAN CISSE and had the opportunity to ask questions and assume patient care.
[2023-02-26] MEDS: acetaminophen 325mg tablet PO PRN (19:01)
[2023-02-26 20:00] VITALS: RESP 16; O2SAT 8
[2023-02-26] MEDS: PALIPERIDONE 3 MG TAB.ER.24 PO SCH (21:47)
[2023-02-26] MEDS: mirtazapine 15mg tablet PO SCH (21:47)
[2023-02-26] MEDS: enoxaparin 40mg/0.4ml syringe SQ SCH (21:47)
[2023-02-26 22:00] VITALS: BP 128/80; PULSE 63; RESP 20; TEMP 98.9; O2SAT 94
[2023-02-27] MEDS: normal saline 1000ml 1,000 ML IV SCH (00:20)
[2023-02-27] MEDS: metoclopramide 5 mg/ml inj IV SCH ×2 (02:00→07:52)
[2023-02-27] MEDS: acetaminophen 325mg tablet PO PRN (02:25)
[2023-02-27 06:00] VITALS: BP 111/73; PULSE 69; RESP 18; TEMP 98; O2SAT 94
--- NOTE | 2023-02-27 06:21 | NUR ---
Problems reprioritized. Patient report given, questions answered & plan of care reviewed with JONNATHAN CISSE.
[2023-02-27] MEDS: magnesium hydroxide 30ml (MOM) UD suspension PO SCH (07:53)
[2023-02-27] MEDS: docusate sod 100mg capsule PO SCH (07:55)
[2023-02-27] MEDS: K and/or MAG REPLACEMENT MC SCH (08:00)
[2023-02-27 08:05] VITALS: RESP 18
[2023-02-27] MEDS: hydrOXYzine 25 MG tablet PO SCH (08:07)
[2023-02-27 10:00] VITALS: BP 144/81; PULSE 79; RESP 15; TEMP 98.4; O2SAT 98
== END 2023-02-27 11:52 | DRG 336 ==
LOC: ER 19:05 → ED HOLD 02-22 00:22 → ORTHO 4S 02-22 15:00
PROVIDERS: ADMIT Family Medicine; ATTEND Internal Medicine
PROC: BW211ZZ Computerized Tomography (CT Scan) of Abdomen and Pelvis using Low Osmolar Contrast (ICD-10-PCS; 2023-02-21)
PROC: 0D9670Z Drainage of Stomach with Drainage Device, Via Natural or Artificial Opening (ICD-10-PCS; 2023-02-22)
PROC: 3E0T3BZ Introduction of Anesthetic Agent into Peripheral Nerves and Plexi, Percutaneous Approach (ICD-10-PCS; 2023-02-23)
PROC: 0DN80ZZ Release Small Intestine, Open Approach (ICD-10-PCS; principal; 2023-02-23 18:55)
DX: K56.52 Intestinal adhesions [bands] with complete obstruction (principal); K50.90 Crohn's disease, unspecified, without complications; K46.9 Unspecified abdominal hernia without obstruction or gangrene; K56.7 Ileus, unspecified; F20.9 Schizophrenia, unspecified; F41.9 Anxiety disorder, unspecified; R33.9 Retention of urine, unspecified; F10.20 Alcohol dependence, uncomplicated; F17.210 Nicotine dependence, cigarettes, uncomplicated; Z81.1 Family history of alcohol abuse and dependence; Z90.49 Acquired absence of other specified parts of digestive tract; Z71.6 Tobacco abuse counseling
CPT/HCPCS: 36415; 74018; 74176; 74177; 76870; 80053; 81003; 82948; 83690; 83735; 85025; 85651; 86140; 93976; 99285; A4215; A4618; A6258; A7000; C1758; C9290; G0378; J0131; J0690; J1100; J1170; J1650; J1885; J2250; J2270; J2405; J2704; J2710; J2765; J3010; J3480; J3490; J7030; J7120; Q0177; Q9963; Q9967

== ENCOUNTER 2024-07-08 09:03 | Emergency (ER) | payer OTHER ==
[~2024-07-08] VITALS: Ht 175.3 cm; Wt 86.0 kg
[~2024-07-08 09:03] MED LIST changes: +HYDR-3686 PO; +KEP500T PO; +MIRT-67 PO; -NO HOME MEDS; +PALI6TAB PO
[2024-07-08] MEDS: acetaminophen 325mg tablet PO ONE (11:03)
[2024-07-08] MEDS: ibuprofen 200mg tablet PO ONE (11:04)
[2024-07-08] MEDS: LIDOcaine 1% W/epiNEPHrine 1:100,000 20ml vial SQ ONE (11:08)
[2024-07-08] MEDS: bacitracin ointment unit dose packet TP ONE (11:53)
[2024-07-08 12:00] VITALS: BP 114/74; PULSE 73; RESP 16; TEMP 97.9; O2SAT 98
== END 2024-07-08 12:10 | disposition home or self-care (01) ==
LOC: ER 09:03
DX: S06.0XAA Concussion with loss of consciousness status unknown, initial encounter (principal); S01.01XA Laceration without foreign body of scalp, initial encounter; F41.9 Anxiety disorder, unspecified; F20.9 Schizophrenia, unspecified; Z79.899 Other long term (current) drug therapy; Z90.49 Acquired absence of other specified parts of digestive tract; Z98.890 Other specified postprocedural states; V89.2XXA Person injured in unspecified motor-vehicle accident, traffic, initial encounter; Y93.89 Activity, other specified; Y92.410 Unspecified street and highway as the place of occurrence of the external cause; Y99.8 Other external cause status
CPT/HCPCS: 12002; 70450; 71045; 72125; 99284; A6402; J7030; Z7610; 12032; A6449

== ENCOUNTER 2024-07-17 13:41 | Emergency (ER) | payer OTHER ==
[~2024-07-17] VITALS: Ht 175.3 cm; Wt 97.7 kg
[2024-07-17 14:10] VITALS: BP 144/75; PULSE 72; RESP 16; TEMP 97.5; O2SAT 96
== END 2024-07-17 14:50 | disposition home or self-care (01) ==
LOC: ER 13:41
DX: S01.01XD Laceration without foreign body of scalp, subsequent encounter (principal); Z48.02 Encounter for removal of sutures; Z90.49 Acquired absence of other specified parts of digestive tract; X58.XXXD Exposure to other specified factors, subsequent encounter
CPT/HCPCS: 99282; A6449

== ENCOUNTER 2024-09-23 21:48 | Emergency (ER) | payer MEDICAID, MEDICARE, OTHER ==
[~2024-09-23] VITALS: Ht 172.7 cm; Wt 87.3 kg
[2024-09-23 22:18] LABS: ALANINE AMINOTRANSFERASE 34 U/L (12-78); ALBUMIN 3.4 G/DL (3.4-5.0); ALBUMIN/GLOBULIN RATIO 0.8 (1.1-1.5); ALKALINE PHOSPHATASE 74 IU/L (46-116); ANION GAP 10 (8-16); ASPARTATE AMINO TRANSFERASE 18 U/L (10-37); BILIRUBIN,TOTAL 0.7 MG/DL (0.1-1.0); BLOOD UREA NITROGEN 9 MG/DL (7-18); BUN/CREATININE RATIO 10.3 (10.0-20.0); CALCIUM 8.6 MG/DL (8.5-10.1); CHLORIDE 101 MMOL/L (99-107); CREATININE 0.87 MG/DL (0.60-1.10); GLUCOSE 81 MG/DL (70-104); POTASSIUM 3.1 MMOL/L (3.5-5.1); SODIUM 139 MMOL/L (135-145); TOTAL CARBON DIOXIDE 28.5 MMOL/L (24-32); TOTAL PROTEIN 7.5 G/DL (6.4-8.2); eCRCL 116 ML/MIN; eGFR > 90 ML/MIN
[2024-09-23 22:27] LABS: ETHANOL < 10 MG/DL (<10); THYROID STIMULATING HORMONE 0.98 ulU/ml (0.34-4.50)
[2024-09-23 22:33] LABS: BASOPHILS % (AUTO) 0.4 % (0-1); EOSINOPHILS % (AUTO) 0.4 % (0-6); HEMATOCRIT 41.3 % (42.0-52.0); HEMOGLOBIN 14.6 g/dl (14.0-17.9); LYMPHOCYTES # (AUTO) 1.2 X10'3 (1.1-4.8); LYMPHOCYTES % (AUTO) 13.2 % (21-51); MEAN CORPUSCULAR HEMOGLOBIN 32.2 PG (27.0-31.0); MEAN CORPUSCULAR HGB CONC 35.5 g/dL (33.0-36.5); MEAN CORPUSCULAR VOLUME 90.8 FL (78-98); MEAN PLATELET VOLUME 7.3 FL (7.4-10.4); MONOCYTES # (AUTO) 0.8 X10'3 (0-0.9); MONOCYTES % (AUTO) 8.1 % (2-12); NEUTROPHILS # (AUTO) 7.2 X10'3 (1.8-7.7); NEUTROPHILS % (AUTO) 77.9 % (42-75); PLATELET COUNT 400 X10'3 (140-440); RED BLOOD COUNT 4.55 X10'6 (4.70-6.10); RED CELL DISTRIBUTION WIDTH 13.2 % (11.5-14.5); WHITE BLOOD COUNT 9.3 X10'3 (4.5-11.0)
[2024-09-23 23:19] LABS: BILIRUBIN,URINE NEGATIVE (Neg); CLARITY,URINE CLEAR (Clear); COLOR,URINE YELLOW (Yellow); GLUCOSE, URINE NEGATIVE (Neg); KETONES,URINE 15 mg/dl (Neg); LEUKOCYTE ESTERASE ,URINE NEGATIVE (Neg); NITRITES, URINE NEGATIVE (Neg); OCCULT BLOOD,URINE TRACE-INTACT (Neg); PROTEIN,URINE NEGATIVE (Neg); UROBILINOGEN,URINE 0.2 E.U/dL (0.2-1.0)
[2024-09-23 23:22] LABS: UA COLLECTION TYPE CLN CATCH MIDSTREAM
[2024-09-23 23:24] LABS: BACTERIA,URINE NONE SEEN /HPF (Neg); RBC,URINE 0-2 /HPF (0-2); SQUAMOUS EPITHELIAL CELL,UR FEW /LPF (FEW); WBC,URINE NONE SEEN /HPF (0-4)
[2024-09-23 23:49] LABS: URINE AMPHETAMINE SCREEN NEGATIVE (Neg); URINE BARBITUATE SCREEN NEGATIVE (Neg); URINE BENZODIAZEPINES SCREEN NEGATIVE (Neg); URINE CANNABINOID SCREEN NEGATIVE (Neg); URINE COCAINE SCREEN NEGATIVE (Neg); URINE METHADONE SCREEN NEGATIVE (Neg); URINE OPIATE SCREEN NEGATIVE (Neg); URINE PHENCYCLIDINE SCREEN NEGATIVE (Neg)
[2024-09-24 05:52] VITALS: TEMP 98.1
[2024-09-24] MEDS: LORazepam 1 MG tablet PO STA (07:59)
[2024-09-24 14:04] VITALS: BP 108/74; PULSE 65; RESP 14; O2SAT 96
== END 2024-09-24 14:00 | disposition left against medical advice (07) ==
LOC: ER 21:48
DX: F99 Mental disorder, not otherwise specified (principal); E87.6 Hypokalemia; F20.9 Schizophrenia, unspecified; F41.9 Anxiety disorder, unspecified; F17.210 Nicotine dependence, cigarettes, uncomplicated; Z20.822 Contact with and (suspected) exposure to COVID-19; Z90.49 Acquired absence of other specified parts of digestive tract; Z98.890 Other specified postprocedural states; Y90.9 Presence of alcohol in blood, level not specified
CPT/HCPCS: 36415; 80053; 80305; 81001; 84443; 85025; 87811; 99284; G0480; 80320